=== PATIENT | female | born 2000 | race Caucasian/White ===

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

== ENCOUNTER 2023-06-08 14:51 | Emergency (ER) | payer OTHER ==
[~2023-06-08] VITALS: Ht 175.3 cm; Wt 81.8 kg
[~2023-06-08 14:51] MED LIST: CEPHALEXIN500 M1 PO; PYRIDIUM 100MG100 MG PO
[2023-06-08 16:01] VITALS: BP 113/78; PULSE 93; TEMP 98.2
== END 2023-06-08 16:00 | disposition home or self-care (01) ==
LOC: COL.ER 14:51
DX: J06.9 Acute upper respiratory infection, unspecified (principal)